=== PATIENT | male | born 1990 ===

== ENCOUNTER 2020-03-08 15:03 | Emergency (ER) | payer MEDICAID, OTHER ==
[2020-03-08] MEDS ORDERED: Sodium Chloride 0.9% 1,000 ML IV ONE (16:30)
[2020-03-08] MEDS ORDERED: Ondansetron 4 MG/2 ML SDV IVPUSH ONE (16:30)
[2020-03-08] MEDS ORDERED: Ketorolac 30 MG/ML SDV IVPUSH ONE (16:30)
[2020-03-08 17:32] LABS: CARBON DIOXIDE,CO2 24.8 mmol/L (21.0-32.0); CHLORIDE,CL 94 mmol/L (98-107); GLUCOSE RANDOM 447 mg/dL (74-106); LIPASE 80 U/L (73-393); POTASSIUM,K 3.7 mmol/L (3.5-5.1)
--- NOTE | 2020-03-08 17:39 | EDM.PDOC ---
ED HPI GENERAL MEDICAL PROBLEM - General Chief Complaint: General Stated Complaint: BODY BODY ACHES/CHILLS/TIGHTENESS OF CHEST Time Seen by Provider: 03/08/20 15:12 Source of Information: Reports: Patient History Limitations: Reports: No Limitations - History of Present Illness INITIAL COMMENTS - FREE TEXT/NARRATIVE: HISTORY AND PHYSICAL: History of present illness: Patient is a 29-year-old female who presents to the emergency room with complaints of body aches, chills, cough, generalized abdominal pain, nausea and vomiting over the past 3 days. Patient denies any fever, headache, change in vision, syncope or near syncope. Denies any chest pain, neck pain/stiffness, back pain, shortness of breath. Denies any diarrhea, constipation or dysuria. Has not noted any blood in urine or stool. Patient has not been eating and drinking appropriately, concerned he may be dehydrated. No recent exposures to COVID-19 although is concerned due to the pandemic Review of systems: As per history of present illness and below otherwise all systems reviewed and negative. Past medical history: As per history of present illness and as reviewed below otherwise noncontributory. Surgical history: As per history of present illness and as reviewed below otherwise noncontributory. Social history: See social history for further information Family history: As per history of present illness and as reviewed below otherwise noncontributory. Physical exam: General: Well developed and well nourished. Alert and orientated x 3. Nontoxic in appearance and in no acute distress. Vital signs are stable and have been reviewed by me. Nursing notes were reviewed. HEENT: Atraumatic, normocephalic, pupils equal and reactive bilaterally, negative for conjunctival pallor or scleral icterus, mucous membranes moist, TMs normal bilaterally, throat clear, neck supple, nontender, trachea midline. No drooling or trismus noted. No meningeal signs. No hot potato voice noted. Lungs: Clear to auscultation, breath sounds equal bilaterally, chest nontender. Normal work of breathing, no accessory muscles used. Heart: S1S2, regular rate and rhythm without overt murmur Abdomen: Soft, nondistended, nontender. Negative for masses or hepatosplenomegaly. Negative for costovertebral tenderness. Skin: Intact, warm, dry. No lesions or rashes noted. Hematologic: No petechiae or purpra. Mucosa appropriate color and normal nail bed color and refill. Extremities: Atraumatic, moves all extremities per self without difficulty or deficits, negative for cords or calf pain. Neurovascular unremarkable. Neuro: Awake, alert, oriented. Cranial nerves II through XII unremarkable. Cerebellum unremarkable. Motor and sensory unremarkable throughout. Exam nonfocal. Psychiatric: Mood and affect are appropriate. Normal thought process. Answering questions appropriately. Notes: Patient does appear dehydrated and his blood sugar is elevated. He states he has not taken his medications due to the nausea and vomiting. I encouraged him to allow us to give him additional fluids/medications for his elevated blood sugar and dehydration. He states he wants to leave AGAINST MEDICAL ADVICE as he would like to leave the facility to return to [place]. He states he does have a provider in [place] in which he will follow-up closely with. States his main concern was the Covid test which was negative. Diagnostics: CBC, CMP, lipase, UA, chest x-ray, COVID-19 Therapeutics: IV fluid, Zofran, Toradol Impression: Dehydration Left AGAINST MEDICAL ADVICE Hyperglycemia Requesting COVID testing Plan: Patient left prior to full treatment Definitive disposition and diagnosis as appropriate pending reevaluation and review of above. Lower Back Pain Score (Numeric/FACES): 8 - Related Data Allergies Allergy/AdvReac Type Severity Reaction Status Date / Time No Known Allergies Allergy Verified 03/08/20 15:30 Home Meds: Home Meds Losartan [Cozaar] 25 mg PO DAILY 03/08/20 [History] metFORMIN [Glucophage XR] 1,000 mg PO BIDMEALS 03/08/20 [History] Past Medical History Cardiovascular History: Reports: Hypertension Endocrine/Metabolic History: Reports: Diabetes, Type II - Infectious Disease History Infectious Disease History: Reports: Chicken Pox Social & Family History - Caffeine Use Caffeine Use: Reports: None - Recreational Drug Use Recreational Drug Use: No ED ROS GENERAL - Review of Systems Review Of Systems: Comprehensive ROS is negative, except as noted in HPI. ED EXAM, GENERAL - Physical Exam Exam: See Below (See dictation) Course - Vital Signs Last Recorded V/S: Last Vital Signs Temp 98.3 F 03/08/20 15:31 Pulse 98 03/08/20 18:22 Resp 18 03/08/20 18:22 BP 159/108 H 03/08/20 18:22 Pulse Ox 99 03/08/20 18:22 - Orders/Labs/Meds Orders: Active Orders 24 hr Category Date Time Status COMPREHENSIVE METABOLIC PN,CMP [CHEM] Stat Lab 03/08/20 16:55 Results CORONAVIRUS COVID-19 PCR PHL Stat Lab 03/08/20 16:27 Received LIPASE [CHEM] Stat Lab 03/08/20 16:55 Results Labs: Laboratory Tests 03/08/20 03/08/20 03/08/20 Range/Units 16:28 16:55 16:55 WBC 10.75 (4.0-11.0) K/uL RBC 5.50 (4.50-5.90) M/uL Hgb (13.0-17.0) g/dL Hct 49.4 (38.0-50.0) % RDW Std Deviation 41.4 (28.0-62.0) fl RDW Coeff of [place] 13 (11.0-15.0) % Plt Count 237 (150-400) K/uL MPV 10.80 (7.40-12.00) fL Neut % (Auto) 56.1 (48.0-80.0) % Lymph % (Auto) 21.3 (16.0-40.0) % [place] % (Auto) 20.7 H (0.0-15.0) % Eos % (Auto) 1.3 (0.0-7.0) % Baso % (Auto) 0.6 (0.0-1.5) % Neut # (Auto) 6.0 H (1.4-5.7) K/uL Lymph # (Auto) 2.3 (0.6-2.4) K/uL [place] # (Auto) 2.2 H (0.0-0.8) K/uL Eos # (Auto) 0.1 (0.0-0.7) K/uL Baso # (Auto) 0.1 (0.0-0.1) K/uL Nucleated RBC % 0.0 /100WBC Nucleated RBCs # 0 K/uL Sodium 126 L (136-148) mmol/L Potassium 3.7 (3.5-5.1) mmol/L Chloride 94 L (98-107) mmol/L Carbon Dioxide 24.8 (21.0-32.0) mmol/L BUN 18 (7.0-18.0) mg/dL Creatinine 0.7 L (0.8-1.3) mg/dL Est Cr Clr Drug Dosing 148.20 mL/min Estimated GFR (MDRD) > 60.0 ml/min Glucose 447 H (74-106) mg/dL Calcium 7.7 L (8.5-10.1) mg/dL Total Bilirubin 0.5 (0.2-1.0) mg/dL Alkaline Phosphatase 155 H (46-116) U/L Total Protein 6.5 (6.4-8.2) g/dL Albumin 3.5 (3.4-5.0) g/dL Globulin 3.0 (2.6-4.0) g/dL Albumin/Globulin Ratio 1.2 (0.9-1.6) Lipase 80 (73-393) U/L SARS CoV-2 RNA Rapid MARITZA NEGATIVE (NEGATIVE) Meds: Medications Discontinued Medications Generic Name Dose Route Start Last Admin Trade Name Freq PRN Reason Stop Dose Admin Sodium Chloride 1,000 mls @ 999 mls/hr 03/08/20 16:30 03/08/20 16:56 Normal Saline IV 03/08/20 17:30 999 mls/hr STAT ONE Administration Ketorolac Tromethamine 30 mg 03/08/20 16:30 03/08/20 16:56 Toradol IVPUSH 03/08/20 16:31 30 mg ONETIME ONE Administration Ondansetron HCl 4 mg 03/08/20 16:30 03/08/20 16:56 Zofran IVPUSH 03/08/20 16:31 4 mg ONETIME ONE Administration Departure - Departure Time of Disposition: 18:34 Disposition: Home, Self-Care 01 Clinical Impression: Left against medical advice, Hyperglycemia, Encounter for screening laboratory testing for COVID-19 virus, Dehydration - Discharge Information Referrals: PCP,None [Primary Care Provider] - Forms: ED Department Discharge Sepsis Event Note (ED) - Evaluation Sepsis Screening Result: No Definite Risk - Focused Exam Vital Signs: Vital Signs Temp Pulse Resp BP Pulse Ox 03/08/20 18:22 98 18 159/108 H 99 03/08/20 15:31 98.3 F 99 16 165/118 H 95 - My Orders Last 24 Hours: My Active Orders 03/08/20 16:27 CORONAVIRUS COVID-19 PCR PHL Stat 03/08/20 16:55 COMPREHENSIVE METABOLIC PN,CMP [CHEM] Stat LIPASE [CHEM] Stat - Assessment/Plan Last 24 Hours: My Active Orders 03/08/20 16:27 CORONAVIRUS COVID-19 PCR PHL Stat 03/08/20 16:55 COMPREHENSIVE METABOLIC PN,CMP [CHEM] Stat LIPASE [CHEM] Stat
[2020-03-08 18:11] LABS: BLOOD UREA NITROGEN,BUN 18 mg/dL (7.0-18.0)
[2020-03-08 18:17] LABS: SODIUM,NA 126 mmol/L (136-148)
--- NOTE | 2020-03-08 18:19 | CR ---
INDICATION: Pain shortness of breath TECHNIQUE: Single view chest. FINDINGS: The lungs are clear. The heart, mediastinum and pulmonary vessels are of normal size. There is no evidence of pleural disease. IMPRESSION: Negative chest. Dictated by Elda Barragan MD @ Mar 08 2020 6:17PM Signed by Dr. Elda Barragan @ Mar 08 2020 6:18PM
== END 2020-03-08 18:50 | disposition home or self-care (01) ==
LOC: MW.ED 15:03
DX: E86.0 Dehydration (principal); E11.65 Type 2 diabetes mellitus with hyperglycemia; I10 Essential (primary) hypertension; Z20.828 Contact with and (suspected) exposure to other viral communicable diseases; Z79.84 Long term (current) use of oral hypoglycemic drugs; Z79.899 Other long term (current) drug therapy; Z53.20 Procedure and treatment not carried out because of patient's decision for unspecified reasons
CPT/HCPCS: 36415; 71045; 80053; 83690; 85025; 87635; 96361; 96374; 96375; 99284; J1885; J2405; J7030; 99283; U0002

== ENCOUNTER 2020-11-15 01:20 | Emergency (ER) | payer MEDICAID, OTHER ==
[2020-11-15] MEDS ORDERED: Insulin Regular, Human 100 Units/ML 10 ML Vial SUBCUT ONE (01:55)
[2020-11-15] MEDS ORDERED: Glucagon,Human Recombinant 1 MG Vial IM PRN (01:55)
[2020-11-15] MEDS ORDERED: 50% Dextrose in Water 50 ML Syringe IVPUSH PRN (01:55)
--- NOTE | 2020-11-15 01:57 | EDM.PDOC ---
ED HPI GENERAL MEDICAL PROBLEM - General Chief Complaint: General Stated Complaint: MEDICAL CLEARANCE Time Seen by Provider: 11/15/20 01:54 - History of Present Illness INITIAL COMMENTS - FREE TEXT/NARRATIVE: History of present illness: This patient was being booked into nursing home and they noted his blood glucose to be 330. He is a diabetic on Metformin only. He does not ever get into DKA. He does not have a sliding scale or manage his own glucose. Review of systems: As per history of present illness and below otherwise all systems reviewed and negative. Past medical history: As per history of present illness and as reviewed below otherwise noncontributory. Surgical history: As per history of present illness and as reviewed below otherwise noncontributory. Social history: No reported history of drug or alcohol abuse. Family history: As per history of present illness and as reviewed below otherwise noncontributory. Physical exam: Constitutional - well developed, well-nourished and in no acute distress HEENT - normocephalic, no evidence of trauma - external nose and mouth normal - no mass in neck and no JVD - mucosae moist EYES - full EOM, PERRL, no icterus - no evidence of inflammation, injection, or drainage Respiratory - no respiratory distress, equal bilateral expansion, lungs clear to auscultation and no abnormal lung sounds Cardiovascular - Regular Rhythm with S1 and S2 appreciated and no murmur, gallop or rub. GI - abdomen soft without distension or organomegaly - normal bowel sounds - no guard or rebound Musculoskeletal no gross deformity of long bones or joints - no tenderness, swe lling or edema Neurologic - Alert and oriented times four - CN II-XII grossly intact - motor sensory and coordination symmetrically normal Psychiatric - appropriate mood and affect with normal thought content Hematologic - No petechiae or purpura - mucosa appropriate color and sclera not pale - normal nail bed color and refill Integument - no rash or evidence of trauma - normal turgor Diagnostics: [] Therapeutics: [] Impression: [] Plan: [] Definitive disposition and diagnosis as appropriate pending reevaluation and review of above. - Related Data Allergies Allergy/AdvReac Type Severity Reaction Status Date / Time No Known Allergies Allergy Verified 03/08/20 15:30 Home Meds: Home Meds Metoprolol Tartrate [Lopressor] 50 mg PO Q12HR #60 tab 11/15/20 [Rx] Past Medical History Cardiovascular History: Reports: Hypertension Endocrine/Metabolic History: Reports: Diabetes, Type II - Infectious Disease History Infectious Disease History: Reports: Chicken Pox Social & Family History - Caffeine Use Caffeine Use: Reports: None ED ROS GENERAL - Review of Systems Review Of Systems: Comprehensive ROS is negative, except as noted in HPI. ED EXAM, GENERAL - Physical Exam Exam: See Below Free Text/Narrative:: My physical exam is in the HPI Course - Vital Signs Text/Narrative:: 0327 hrs. the patient's blood pressure and blood glucose were slightly down. Patient was not acidotic not symptomatic from hypertension. Patient will be cleared and asked to follow-up with primary care to decide if he needs addit ional diabetes medicines and also to start metoprolol 50 mg twice a day for his blood pressure. Last Recorded V/S: Last Vital Signs Temp 35.9 C L 11/15/20 02:16 Pulse 111 H 11/15/20 03:23 Resp 16 11/15/20 03:23 BP 182/116 H 11/15/20 03:23 Pulse Ox 99 11/15/20 03:23 - Orders/Labs/Meds Orders: Active Orders 24 hr Category Date Time Status Blood Glucose Check, Bedside [RC] ONETIME Care 11/15/20 03:19 Active Dextrose 50% in Water Med 11/15/20 01:55 Active 50 ml IVPUSH ASDIRECTED PRN Glucagon,Human Recombinant [GlucaGen] Med 11/15/20 01:55 Active 1 mg IM ASDIRECTED PRN Medication Orders Dextrose/Water (50% Dextrose In Water 50 Ml Syringe) 50 ml IVPUSH ASDIRECTED PRN PRN Reason: Hypoglycemia Glucagon (Glucagon,Human Recombinant 1 Mg Vial) 1 mg IM ASDIRECTED PRN PRN Reason: Hypoglycemia Labs: Laboratory Tests 11/15/20 11/15/20 11/15/20 Range/Units 02:10 02:10 02:18 WBC 9.63 (4.0-11.0) K/uL RBC 5.86 (4.50-5.90) M/uL Hgb 18.3 H (13.0-17.0) g/dL Hct 50.8 H (38.0-50.0) % MCV 86.7 (80.0-98.0) fL MCH 31.2 (27.0-32.0) pg MCHC 36.0 (31.0-37.0) g/dL RDW Std Deviation 39.9 (28.0-62.0) fl RDW Coeff of [place] 13 (11.0-15.0) % Plt Count 215 (150-400) K/uL MPV 10.90 (7.40-12.00) fL Neut % (Auto) 56.5 (48.0-80.0) % Lymph % (Auto) 34.0 (16.0-40.0) % [place] % (Auto) 7.5 (0.0-15.0) % Eos % (Auto) 1.5 (0.0-7.0) % Baso % (Auto) 0.5 (0.0-1.5) % Neut # (Auto) 5.5 (1.4-5.7) K/uL Lymph # (Auto) 3.3 H (0.6-2.4) K/uL [place] # (Auto) 0.7 (0.0-0.8) K/uL Eos # (Auto) 0.1 (0.0-0.7) K/uL Baso # (Auto) 0.1 (0.0-0.1) K/uL Sodium 134 L (136-148) mmol/L Potassium 3.9 (3.5-5.1) mmol/L Chloride 102 (98-107) mmol/L Carbon Dioxide 22.0 (21.0-32.0) mmol/L BUN 13 (7.0-18.0) mg/dL Creatinine 0.8 (0.8-1.3) mg/dL Est Cr Clr Drug Dosing 133.00 mL/min Estimated GFR (MDRD) > 60.0 ml/min Glucose 347 H (74-106) mg/dL POC Glucose 339 H (70-99) mg/dL Calcium 8.0 L (8.5-10.1) mg/dL Total Bilirubin 0.5 (0.2-1.0) mg/dL AST 16 (15-37) IU/L ALT 39 (14-63) IU/L Alkaline Phosphatase 128 H (46-116) U/L Total Protein 7.2 (6.4-8.2) g/dL Albumin 3.4 (3.4-5.0) g/dL Globulin 3.8 (2.6-4.0) g/dL Albumin/Globulin Ratio 0.9 (0.9-1.6) Urine Color Urine Appearance Urine pH (5.0-8.0) Ur Specific [place] (1.001-1.035) Urine Protein (NEGATIVE) mg/dL Urine Glucose (UA) (NEGATIVE) mg/dL Urine Ketones (NEGATIVE) mg/dL Urine Occult Blood (NEGATIVE) Urine Nitrite (NEGATIVE) Urine Bilirubin (NEGATIVE) Urine Urobilinogen (<2.0) EU/dL Ur Leukocyte Esterase (NEGATIVE) Urine RBC (0-2/HPF) Urine WBC (0-5/HPF) Ur Epithelial Cells (NONE-FEW) Urine Bacteria (NEGATIVE) 11/15/20 Range/Units 02:30 WBC (4.0-11.0) K/uL RBC (4.50-5.90) M/uL Hgb (13.0-17.0) g/dL Hct (38.0-50.0) % MCV (80.0-98.0) fL MCH (27.0-32.0) pg MCHC (31.0-37.0) g/dL RDW Std Deviation (28.0-62.0) fl RDW Coeff of [place] (11.0-15.0) % Plt Count (150-400) K/uL MPV (7.40-12.00) fL Neut % (Auto) (48.0-80.0) % Lymph % (Auto) (16.0-40.0) % [place] % (Auto) (0.0-15.0) % Eos % (Auto) (0.0-7.0) % Baso % (Auto) (0.0-1.5) % Neut # (Auto) (1.4-5.7) K/uL Lymph # (Auto) (0.6-2.4) K/uL [place] # (Auto) (0.0-0.8) K/uL Eos # (Auto) (0.0-0.7) K/uL Baso # (Auto) (0.0-0.1) K/uL Sodium (136-148) mmol/L Potassium (3.5-5.1) mmol/L Chloride (98-107) mmol/L Carbon Dioxide (21.0-32.0) mmol/L BUN (7.0-18.0) mg/dL Creatinine (0.8-1.3) mg/dL Est Cr Clr Drug Dosing mL/min Estimated GFR (MDRD) ml/min Glucose (74-106) mg/dL POC Glucose (70-99) mg/dL Calcium (8.5-10.1) mg/dL Total Bilirubin (0.2-1.0) mg/dL AST (15-37) IU/L ALT (14-63) IU/L Alkaline Phosphatase (46-116) U/L Total Protein (6.4-8.2) g/dL Albumin (3.4-5.0) g/dL Globulin (2.6-4.0) g/dL Albumin/Globulin Ratio (0.9-1.6) Urine Color YELLOW Urine Appearance CLEAR Urine pH 6.0 (5.0-8.0) Ur Specific [place] 1.020 (1.001-1.035) Urine Protein 100 H (NEGATIVE) mg/dL Urine Glucose (UA) >=1000 (NEGATIVE) mg/dL Urine Ketones NEGATIVE (NEGATIVE) mg/dL Urine Occult Blood NEGATIVE (NEGATIVE) Urine Nitrite NEGATIVE (NEGATIVE) Urine Bilirubin NEGATIVE (NEGATIVE) Urine Urobilinogen 0.2 (<2.0) EU/dL Ur Leukocyte Esterase NEGATIVE (NEGATIVE) Urine RBC 0-1 (0-2/HPF) Urine WBC 0-1 (0-5/HPF) Ur Epithelial Cells RARE (NONE-FEW) Urine Bacteria RARE (NEGATIVE) Meds: Medications Generic Name Dose Route Start Last Admin Trade Name Lali PRN Reason Stop Dose Admin Dextrose/Water 50 ml 11/15/20 01:55 50% Dextrose In Water 50 Ml Syringe IVPUSH ASDIRECTED PRN Hypoglycemia Glucagon 1 mg 11/15/20 01:55 Glucagon,Human Recombinant 1 Mg Vial IM ASDIRECTED PRN Hypoglycemia Discontinued Medications Generic Name Dose Route Start Last Admin Trade Name Lali PRN Reason Stop Dose Admin Insulin Human Regular 10 unit 11/15/20 01:55 11/15/20 02:19 Insulin Regular, Human 100 Units/Ml 10 Ml Vial SUBCUT 11/15/20 01:56 10 units ONETIME ONE Administration Protocol Metoprolol Tartrate 50 mg 11/15/20 02:21 11/15/20 02:25 Metoprolol Tartrate 50 Mg Tab PO 11/15/20 02:22 50 mg ONETIME ONE Administration Departure - Departure Time of Disposition: 03:28 Disposition: Home, Self-Care 01 Condition: Good Clinical Impression: Hypertension, Hyperglycemia, Medical clearance for incarceration - Discharge Information Prescriptions: Metoprolol Tartrate [Lopressor] 50 mg PO Q12HR #60 tab Referrals: PCP,Not In Area [Primary Care Provider] - Forms: ED Department Discharge Sepsis Event Note (ED) - Focused Exam Vital Signs: Vital Signs Temp Pulse Pulse Resp BP BP Pulse Ox 11/15/20 03:23 111 H 16 182/116 H 99 11/15/20 02:25 108 H 173/106 H 11/15/20 02:16 35.9 C L 110 H 18 203/130 H 96 - My Orders Last 24 Hours: My Active Orders 11/15/20 01:55 Dextrose 50% in Water 50 ml IVPUSH ASDIRECTED PRN Glucagon,Human Recombinant [GlucaGen] 1 mg IM ASDIRECTED PRN 11/15/20 03:19 Blood Glucose Check, Bedside [RC] ONETIME - Assessment/Plan Last 24 Hours: My Active Orders 11/15/20 01:55 Dextrose 50% in Water 50 ml IVPUSH ASDIRECTED PRN Glucagon,Human Recombinant [GlucaGen] 1 mg IM ASDIRECTED PRN 11/15/20 03:19 Blood Glucose Check, Bedside [RC] ONETIME
[2020-11-15] MEDS ORDERED: Metoprolol Tartrate 50 MG Tab PO ONE (02:21)
[2020-11-15 02:55] LABS: BLOOD UREA NITROGEN,BUN 13 mg/dL (7.0-18.0); CHLORIDE,CL 102 mmol/L (98-107); GLUCOSE RANDOM 347 mg/dL (74-106); POTASSIUM,K 3.9 mmol/L (3.5-5.1); SODIUM,NA 134 mmol/L (136-148)
== END 2020-11-15 03:36 ==
LOC: MW.ED 01:20
DX: I10 Essential (primary) hypertension (principal); E11.65 Type 2 diabetes mellitus with hyperglycemia; Z79.899 Other long term (current) drug therapy
CPT/HCPCS: 36415; 80053; 81001; 82947; 85025; 99285; A9270; 99282; J1815-GY

== ENCOUNTER 2021-06-07 18:44 | Emergency (ER) | payer MEDICAID ==
[2021-06-07] MEDS ORDERED: Lidocaine/Prilocaine 2.5-2.5% Crm 5 GM Tube TOP ONE (19:52)
[2021-06-07] MEDS ORDERED: HYDROmorphone 1 MG/ML Syringe IM ONE (19:52)
[2021-06-07] MEDS ORDERED: Lidocaine 2% 5 ML SDV INJECT ONE (19:54)
[2021-06-07] MEDS ORDERED: Sodium Chloride 0.9% 1,000 ML IV ONE (19:56)
[2021-06-07] MEDS ORDERED: HYDROmorphone 2 MG/ML Syringe IVPUSH ONE (19:57)
[2021-06-07] MEDS ORDERED: Lidocaine/EPINEPHrine/Tetracaine Soln 1 ML ONE (20:08)
[2021-06-07] MEDS ORDERED: Lidocaine/EPINEPHrine/Tetracaine Soln 1 ML TOP ONE (20:54)
[2021-06-07] MEDS ORDERED: Metoprolol Succinate 50 MG Tab.ER PO SCH (21:00)
[2021-06-07 21:49] LABS: BLOOD UREA NITROGEN,BUN 16 mg/dL (7.0-18.0); CARBON DIOXIDE,CO2 25.5 mmol/L (21.0-32.0); CHLORIDE,CL 101 mmol/L (98-107); GLUCOSE RANDOM 443 mg/dL (74-106); POTASSIUM,K 4.1 mmol/L (3.5-5.1); SODIUM,NA 135 mmol/L (136-148)
[2021-06-07] MEDS ORDERED: Metoprolol Succinate 50 MG Tab.ER PO STA (21:58)
[2021-06-07] MEDS ORDERED: 50% Dextrose in Water 50 ML Syringe IVPUSH PRN (21:59)
[2021-06-07] MEDS ORDERED: Glucagon,Human Recombinant 1 MG Vial IM PRN (21:59)
[2021-06-07] MEDS ORDERED: Insulin Regular, Human 100 Units/ML 10 ML Vial IVPUSH STA (21:59)
[2021-06-07] MEDS ORDERED: Acetaminophen/HYDROcodone 325-5 MG Tab PO ONE (22:55)
== END 2021-06-08 00:55 | disposition home or self-care (01) ==
LOC: MW.ED 18:44
DX: L02.31 Cutaneous abscess of buttock (principal); I10 Essential (primary) hypertension; E11.65 Type 2 diabetes mellitus with hyperglycemia; Z79.84 Long term (current) use of oral hypoglycemic drugs
CPT/HCPCS: 10060; 36415; 80053; 85025; 96374; 99284; A9270; J1170; J1815; J7030